=== PATIENT | female | born 1990 | race Caucasian/White ===

== ENCOUNTER 2019-12-07 10:00 | Emergency (ER) | payer OTHER ==
[~2019-12-07] VITALS: Ht 167.6 cm; Wt 70.3 kg
[2019-12-07 10:06] VITALS: BP 141/99; Ht 167.6 cm; Wt 70.3 kg
== END 2019-12-07 10:40 | disposition other institution (70) ==
LOC: ED 10:00
DX: Z02.89 Encounter for other administrative examinations (principal)